=== PATIENT | male | born 1990 | race Caucasian/White ===

== ENCOUNTER 2017-12-02 19:28 | Emergency (ER) | payer OTHER, MEDICAID ==
[2017-12-02 20:15] VITALS: PULSE 90
[2017-12-02] MEDS ORDERED: IBUPROFEN 600 MG TAB PO ONE (20:59)
[2017-12-02] MEDS ORDERED: DIAZEPAM 5 MG PREPACK#4 BTL TAKEHOME ONE (20:59)
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
[2017-12-02 21:08] VITALS: BP 94/61; RESP 18; TEMP 98.6; O2SAT 93
== END 2017-12-02 21:15 | disposition home or self-care (01) ==
DX: S39.012A Strain of muscle, fascia and tendon of lower back, initial encounter (principal); F17.200 Nicotine dependence, unspecified, uncomplicated; V89.0XXA Person injured in unspecified motor-vehicle accident, nontraffic, initial encounter; Y92.410 Unspecified street and highway as the place of occurrence of the external cause